=== PATIENT | male | born 1985 | race American Indian/Alaskan Native ===

== ENCOUNTER 2021-01-30 05:59 | Emergency (ER) | payer BC ==
[2021-01-30 07:01] LABS: Bilirubin,Urine NEG (Negative); Blood,Urine SM (Negative); Color,Urine Straw (Yellow); Protein,Urine <15 mg/dL mg/dL (Negative); Urobilinogen,Urine < 2.0 mg/dL (<2.0)
[2021-01-30 07:01] LABS: Hematocrit 39.8 % (35.5-45.6); Hemoglobin 13.9 gm/dl (11.8-15.2); Mean Corpuscular HGB Conc 35 % (32-34); Mean Corpuscular Volume 86 fl (84-94); Platelet Count 212 K/mm3 (140-440); Red Blood Count 4.61 M/mm3 (3.65-5.03); Red Cell Distribution Width 13.9 % (13.2-15.2)
[2021-01-30 07:26] LABS: Alanine Aminotransferase 59 units/L (7-56); BUN/Creatinine Ratio 10; Bilirubin,Direct < 0.2 mg/dL (0-0.2); Blood Urea Nitrogen 14 mg/dL (9-20); Calcium 8.5 mg/dL (8.4-10.2); Hemolysis Index 3
[2021-01-30] MEDS ORDERED: SODIUM CHLORIDE 0.9% 1000 ML 1,000 ML IV ONE (09:13)
[2021-01-30] MEDS ORDERED: ONDANSETRON 4 MG/2 ML INJ IV ONE (09:13)
--- NOTE | 2021-01-30 09:14 | Emergency Department Report ---
ED N/V/D HPI - General Chief complaint: Nausea/Vomiting/Diarrhea Stated complaint: WEAKNESS;VOMITING PUI?: No Time Seen by Provider: 01/30/21 08:32 Source: EMS Mode of arrival: Ambulatory Limitations: No Limitations - History of Present Illness Initial comments: Mr. Hodgson is a pleasant 35-year-old -[place] male that comes to the ER today with a several day history of nausea and vomiting. Patient states that he had a hip replacement 3 weeks ago done by [facility]. They started him on antibiotic and he reports to me that that is when his nausea and vomiting started. Patient states he did not call [facility] with the complaint. He states that he does think that it is related to the antibiotic but he did not think to call [facility]. He came to the emergency room. On arrival his vital signs are normal he has no hypotension his heart rate is 100. He is in no acute distress. He has no active vomiting while in the triage or ACC area. On arrival to [facility] patient jumped off the stretcher and and went to the restroom ambulating without difficulty. Patient is unable to tell me the names of the medications that he has been on. MD complaint: nausea, vomiting, diarrhea -: Gradual, days(s) Description of Vomiting: watery Description of Diarrhea: water Associated Abdominal Pain: Yes Location: diffuse Quality: cramping Consistency: intermittent Improves with: none Worsens with: medication Associated Symptoms: denies other symptoms - Related Data Previous Rx's Medication Instructions Recorded Last Taken Type Ondansetron [Zofran Odt] 4 mg PO Q8HR PRN #10 tab.rapdis 01/30/21 Unknown Rx Allergies Allergy/AdvReac Type Severity Reaction Status Date / Time No Known Allergies Allergy Verified 11/13/19 15:20 ED Review of Systems ROS: Stated complaint: WEAKNESS;VOMITING Other details as noted in HPI Comment: All other systems reviewed and negative ED Past Medical Hx - Past Medical History Previous Medical History?: Yes - Surgical History Past Surgical History?: Yes Additional Surgical History: Hip Replacement - Family History Family history: no significant - Social History Smoking Status: Never Smoker Substance Use Type: Alcohol - Medications Home Medications: Home Medications Medication Instructions Recorded Confirmed Last Taken Type Ondansetron [Zofran Odt] 4 mg PO Q8HR PRN #10 tab.rapdis 03/31/21 Unknown Rx ED Physical Exam - General Limitations: No Limitations General appearance: alert, in no apparent distress - Head Head exam: Present: atraumatic, normocephalic - Eye Eye exam: Present: normal appearance - ENT ENT exam: Present: mucous membranes moist - Neck Neck exam: Present: normal inspection - Respiratory Respiratory exam: Present: normal lung sounds bilaterally. Absent: respiratory distress - Cardiovascular Cardiovascular Exam: Present: regular rate, normal rhythm. Absent: systolic murmur, diastolic murmur, rubs, gallop - GI/Abdominal GI/Abdominal exam: Present: soft, normal bowel sounds - Rectal Rectal exam: Present: deferred - Extremities Exam Extremities exam: Present: normal inspection - Back Exam Back exam: Present: normal inspection - Neurological Exam Neurological exam: Present: alert, oriented X3 - Psychiatric Psychiatric exam: Present: normal affect, normal mood - Skin Skin exam: Present: warm, dry, intact, normal color. Absent: rash ED Course Vital Signs 01/30/21 11:00 Pulse Rate [ 75 Lying] Pulse Rate [ 79 Sitting] Pulse Rate [ 87 Standing] Blood Pressure 101/71 [Lying] Blood Pressure 99/69 [Sitting] Blood Pressure 105/69 [Standing] ED Medical Decision Making - Lab Data Result diagrams: 01/30/21 06:38 01/30/21 06:38 - Medical Decision Making Labs 01/30/21 01/30/21 01/30/21 06:17 06:38 06:38 WBC 3.6 L RBC 4.61 Hgb 13.9 Hct 39.8 MCV 86 MCH 30 MCHC 35 H RDW 13.9 Plt Count 212 [place] % (Auto) [employer] Sodium 131 L Potassium 3.9 Chloride 97.2 L Carbon Dioxide 22 Anion Gap 16 BUN 14 Creatinine 1.4 H Estimated GFR > 60 BUN/Creatinine Ratio 10 Glucose 107 H Calcium 8.5 Total Bilirubin 0.30 Direct Bilirubin < 0.2 AST 44 H ALT 59 H Alkaline Phosphatase 117 Total Protein 7.7 Albumin 4.0 Albumin/Globulin Ratio 1.1 Lipase 21 Urine Color Straw Urine Turbidity Clear Urine pH 6.0 Ur Specific [place] 1.004 Urine Protein <15 mg/dl Urine Glucose (UA) Neg Urine Ketones Neg Urine Blood Sm Urine Nitrite Neg Urine Bilirubin Neg Urine Urobilinogen < 2.0 Ur Leukocyte Esterase Neg Urine WBC (Auto) 1.0 Urine RBC (Auto) 1.0 VS per RN 1L NS given Pt ambulatory and non ill appearing on exam. Taking PO. Patient staffed with Dr. Michel Vital Signs 01/30/21 11:00 Pulse Rate [ 75 Lying] Pulse Rate [ 79 Sitting] Pulse Rate [ 87 Standing] Blood Pressure 101/71 [Lying] Blood Pressure 99/69 [Sitting] Blood Pressure 105/69 [Standing] on reexam- pt non ill, no n/v/d., taking PO orthostatics noted Pt being dc home with dc plan of care including following up TODAY with his surgeon to discuss medications. Pt verbalizes understanding of plan of care. - Differential Diagnosis gastroenteritis; med side effect Critical care attestation.: If time is entered above; I have spent that time in minutes in the direct care of this critically ill patient, excluding procedure time. ED Disposition Clinical Impression: Nausea and vomiting, Elevated serum creatinine, Post-operative complication, Antibiotic causing adverse effect Disposition: DC-01 TO HOME OR SELFCARE Is pt being admited?: No Does the pt Need Aspirin: No Condition: Stable Instructions: Nausea and Vomiting, Adult Additional Instructions: CALL [facility] TODAY AND TELL THEM THAT WE THINK YOUR ANTIBIOTIC AND OR MOTRIN IS CAUSING YOUR NAUSEA/VOMITING THEY MAY NEED TO CHANGE YOUR MEDICATIONS ZOFRAN FOR NAUSEA DRINK A LOT OF WATER TO STAY HYDRATED CINDY GIVEN YOU A REFERRAL TO OUR PCP WELL SEE BELOW Prescriptions: Ondansetron [Zofran Odt] 4 mg PO Q8HR PRN #10 tab.rapdis PRN Reason: Vomiting Referrals: AREN DE SANTIAGO MD [Staff Physician] - 3-5 Days RASHMI CEJA MD [Staff Physician] - 3-5 Days Time of Disposition: 09:14
[2021-01-30 09:46] LABS: Total Cells Counted 100
[2021-01-30 09:53] LABS: Platelet Estimate Consistent w Auto; RBC Morphology Normal
[2021-01-30 11:02] VITALS: BP 101/71
== END 2021-01-30 12:26 | disposition home or self-care (01) ==
LOC: ED 05:59
DX: R11.2 Nausea with vomiting, unspecified (principal); T36.95XA Adverse effect of unspecified systemic antibiotic, initial encounter; R94.4 Abnormal results of kidney function studies; Y92.89 Other specified places as the place of occurrence of the external cause; Z98.890 Other specified postprocedural states; Z79.899 Other long term (current) drug therapy
CPT/HCPCS: 36415; 80048; 80076; 81001; 83690; 85007; 85025; 96361; 96374; 99284; J2405; J7030